=== PATIENT | male | born 1965 | race Caucasian/White ===

== ENCOUNTER 2017-05-03 09:59 | Emergency (ER) | payer MEDICAID ==
[2017-05-03 10:15] VITALS: BP 100/50; PULSE 76; RESP 20; TEMP 98.2; O2SAT 96
[2017-05-03 10:17] VITALS: BMI 31.2
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
== END 2017-05-03 11:15 | disposition home or self-care (01) ==
LOC: H.ER 09:59
DX: S01.511A Laceration without foreign body of lip, initial encounter (principal); Y08.89XA Assault by other specified means, initial encounter; Y93.89 Activity, other specified; Y92.89 Other specified places as the place of occurrence of the external cause

== ENCOUNTER 2017-10-30 09:21 | Emergency (ER) | payer MEDICAID ==
[2017-10-30 09:22] VITALS: BMI 31.2
[2017-10-30 09:42] VITALS: BP 145/84; PULSE 98; RESP 19; O2SAT 96
--- NOTE | 2017-10-30 10:30 | ED PDOC ---
HPI: CCC, URI, Sore Throat Time Seen by Provider: 10/30/17 09:43 Chief Complaint (Nursing): Cough, Cold, Congestion History Per: Patient History/Exam Limitations: no limitations Onset/Duration Of Symptoms: Days (1), Gradual Current Symptoms Are (Timing): Still Present Associated Symptoms: Fever, Chills, Cough, Sputum (yellow), Myalgias, Nasal Congestion. denies: Sore Throat, Neck Pain, Nausea, Vomiting, Diarrhea Ear Symptoms: Bilateral: None Severity: Mild Additional History Per: Patient Additional Complaint(s): c.o cough, congestion since friday. c.o pain to left rib cage with deep inspiration since last night. states he had a fever on friday and again today no travel Past Medical History Reviewed: Historical Data, Nursing Documentation, Vital Signs Vital Signs: Last Vital Signs Temp 100.7 F H 10/30/17 13:25 Pulse 98 H 10/30/17 09:35 Resp 19 10/30/17 09:35 BP 145/84 10/30/17 09:35 Pulse Ox 96 10/30/17 13:24 - Medical History PMH: Anxiety, Asthma, Back Problems, HTN, Pneumonia - Family History Family History: States: Unknown Family Hx - Living Arrangements Living Arrangements: With Family - Social History Current smoker - smoking cessation education provided: No - Immunization History Hx Tetanus Toxoid Vaccination: (2007) - Home Medications Home Medications: Ambulatory Orders Medication Instructions Recorded Azithromycin 250 mg PO DAILY #5 tab 10/30/17 - Allergies Allergies/Adverse Reactions: Allergies Allergy/AdvReac Type Severity Reaction Status Date / Time No Known Allergies Allergy Verified 05/03/17 10:21 Curb-65 Severity Score - CURB-65 Severity Score Confusion: No Bun >19mg/dl (>7mmol/L): No Respiratory Rate greater than/equal to 30: No Systolic BP <90 or Diastolic BP less than/equal 60mmHg: No Age >64: No Curb-65 Score: 0 Percentage 30-day mortality: 0.6% Review of Systems ROS Statement: Except As Marked, All Systems Reviewed And Found Negative Constitutional: Positive for: Fever, Chills Cardiovascular: Positive for: Chest Pain (with cough and deep breath). Negative for: Palpitations Respiratory: Positive for: Cough, Sputum (yellow), Wheezing Gastrointestinal: Negative for: Nausea, Vomiting, Abdominal Pain, Diarrhea Musculoskeletal: Negative for: Neck Pain Skin: Negative for: Rash Neurological: Negative for: Weakness, Numbness, Headache Physical Exam - Reviewed Nursing Documentation Reviewed: Yes Vital Signs Reviewed: Yes - Physical Exam Appears: Positive for: Uncomfortable Head Exam: Positive for: ATRAUMATIC, NORMAL INSPECTION, NORMOCEPHALIC Eye Exam: Positive for: Normal appearance, EOMI, PERRL Neck: Positive for: Normal, Painless ROM, Supple Cardiovascular/Chest: Positive for: Regular Rate, Rhythm, Chest Non Tender. Negative for: Edema, Gallop, Murmur, Bradycardia, Tachycardia Respiratory: Positive for: Rales (rll). Negative for: Decreased Breath Sounds, Accessory Muscle Use, Crackles, Wheezing, Respiratory Distress Pulses-Radial (L): 2+ Pulses-Radial (R): 2+ Gastrointestinal/Abdominal: Positive for: Normal Exam, Bowel Sounds, Soft. Negative for: Tenderness Back: Positive for: Normal Inspection. Negative for: L CVA Tenderness, R CVA Tenderness Extremity: Positive for: Normal ROM. Negative for: Tenderness, Pedal Edema, Calf Tenderness, Deformity, Swelling Neurologic/Psych: Positive for: Alert, sander setter II-XII, Oriented, Mood/Affect (calm) , Gait (steady). Negative for: Motor/Sensory Deficits, Aphasia, Facial Droop - Laboratory Results Result Diagrams: 10/30/17 11:00 10/30/17 11:00 - ECG ECG: Positive for: Interpreted By Me ECG Rhythm: Positive for: Normal QRS, Normal ST Segment, Sinus Rhythm (82). Negative for: ST/T Changes Interpretation Of Abn EKG: no evidence of ischemia O2 Sat by Pulse Oximetry: 96 Pulse Ox Interpretation: Normal - Progress ED Course And Treament: pt now comfortable no signs of sepsis only elevated wbc. given abx will d/c home on zithromax. all of pt's questions were answered and pt agree's with plan. Re-evaluation Time: 13:00 Condition: Improved Medical Decision Making Medical Decision Making: Time: 11:18 Chest X-Ray FINDINGS: LUNGS: Linear atelectasis identified the inferior left lung zone laterally. Remainder of the lungs appears unremarkable bilaterally. PLEURA: No significant pleural effusion identified. No pneumothorax apparent. CARDIOVASCULAR: Normal. OSSEOUS STRUCTURES: No significant abnormalities. VISUALIZED UPPER ABDOMEN: Normal. OTHER FINDINGS: None. IMPRESSION: Linear atelectasis left base. Remainder of the examination appears unremarkable. (-) for influenza a/b Time: 13:04 CT Chest with contrast (Pulmonary Angiogram) FINDINGS: PULMONARY ARTERIES: Examination technically limited. There was a technical error associated with timing of scan relative to contrast administration. Adequate contrast enhancement of the pulmonary arteries is not achieved for this examination. No large central pulmonary embolus is identified. However, segmental and subsegmental pulmonary artery branches are not adequately evaluated. AORTA: No acute findings. No thoracic aortic aneurysm. LUNGS: Left lower lobe consolidation. Pneumonia versus atelectasis. Please note that there are secretions seen within left lower lobe bronchi, of uncertain significance. No pulmonary mass. Minimal dependent atelectasis in right lower lobe. . PLEURAL SPACES: Unremarkable. No effusion or pneuomothorax. HEART: Unremarkable. No cardiomegaly. No significant pericardial effusion. LYMPH NODES: No significant mediastinal or hilar lymphadenopathy. Shotty mediastinal nodes are identified. BONES, CHEST WALL: Unremarkable. No fracture or destructive lesion OTHER FINDINGS: Low-density left upper pole renal mass, 1.5 cm. Likely cortical cysts. However , this measures 23 Hounsfield units. Consider nonemergent ultrasound examination for further evaluation. IMPRESSION: Technically limited examination. Cannot exclude pulmonary embolism on the basis of this examination. Left lower lobe infiltrate versus atelectasis. Note is made of secretions within left lower lobe bronchi. Incidental 1.5 cm left upper pole low-density renal mass, most likely cyst. Consider nonemergent evaluation with ultrasound examination. Disposition - Clinical Impression Clinical Impression: Pneumonia - Patient ED Disposition Is Patient to be Admitted: No Counseled Patient/Family Regarding: Studies Performed, Diagnosis, Need For Followup, Rx Given - Disposition Referrals: [facility] [Outside] (2 to 3 days) Disposition: Routine/Home Disposition Time: 13:00 Condition: GOOD Prescriptions: Azithromycin 250 mg PO DAILY #5 tab Instructions: Pneumonia, Adult (DC) Forms: [employer] (Kiswahili)
[2017-10-30 11:18] LABS: BASO # 0.1 K/uL (0.0-0.2); BASO % 0.7 % (0.0-2.0); EOS % 0.2 % (0.0-4.0); LYMPH # 2.6 K/uL (1.0-4.3); LYMPH % 14.4 % (20.0-40.0); MEAN CELL VOLUME 91.6 fl (80.0-94.0); MEAN CORPUSCULAR HEMOGLOBIN 31.4 pg (27.0-31.0); MEAN CORPUSCULAR HGB CONC 34.3 g/dL (33.0-37.0); MEAN PLATELET VOLUME 7.9 fl (7.2-11.7); MONO # 1.8 K/uL (0.0-0.8); NEUT # 13.4 K/uL (1.8-7.0); NEUT % 74.7 % (50.0-75.0); NRBC % 0.1 % (0.0-0.0); RBC 4.77 Mil/uL (4.40-5.90); RED CELL DISTRIBUTION WIDTH 12.7 % (11.5-14.5); WHITE BLOOD COUNT 17.9 K/uL (4.8-10.8)
--- NOTE | 2017-10-30 11:20 | RAD ---
HISTORY: cough COMPARISON: Chest with left ribs 02/05/2015. TECHNIQUE: Chest PA and lateral FINDINGS: LUNGS: Linear atelectasis identified the inferior left lung zone laterally. Remainder of the lungs appears unremarkable bilaterally. PLEURA: No significant pleural effusion identified. No pneumothorax apparent. CARDIOVASCULAR: Normal. OSSEOUS STRUCTURES: No significant abnormalities. VISUALIZED UPPER ABDOMEN: Normal. OTHER FINDINGS: None. IMPRESSION: Linear atelectasis left base. Remainder of the examination appears unremarkable.
[2017-10-30 11:26] LABS: GFR AFRICAN-AMERICAN > 60; GFR NON-AFRICAN AMERICAN > 60
[2017-10-30 11:47] LABS: ALB/GLOB RATIO 0.8 (1.0-2.1); ALBUMIN 3.8 g/dL (3.5-5.0); ALT/SGPT 46 U/L (21-72); AST/SGOT 53 U/L (17-59); BLOOD UREA NITROGEN 20 mg/dl (9-20)
[2017-10-30] MEDS ORDERED: Iodixanol 320 MG/ML 100 ML BOTTLE IV ONE (11:50)
[2017-10-30] MEDS ORDERED: Sodium Chloride 0.9% 100 ML ONE (11:51)
--- NOTE | 2017-10-30 13:06 | CT ---
PROCEDURE: CT Chest with contrast (Pulmonary Angiogram) HISTORY: cp r/o pe COMPARISON: None available. TECHNIQUE: Axial computed tomography images were obtained of the chest in the pulmonary arterial phase of enhancement. Coronal and sagittal reformatted images were created and reviewed. Intravenous contrast dose: 95 mL Omnipaque 300 Radiation dose: Total exam DLP = 469.73 mGy-cm. This CT exam was performed using one or more of the following dose reduction techniques: Automated exposure control, adjustment of the mA and/or kV according to patient size, and/or use of iterative reconstruction technique. FINDINGS: PULMONARY ARTERIES: Examination technically limited. There was a technical error associated with timing of scan relative to contrast administration. Adequate contrast enhancement of the pulmonary arteries is not achieved for this examination. No large central pulmonary embolus is identified. However, segmental and subsegmental pulmonary artery branches are not adequately evaluated. AORTA: No acute findings. No thoracic aortic aneurysm. LUNGS: Left lower lobe consolidation. Pneumonia versus atelectasis. Please note that there are secretions seen within left lower lobe bronchi, of uncertain significance. No pulmonary mass. Minimal dependent atelectasis in right lower lobe. . PLEURAL SPACES: Unremarkable. No effusion or pneuomothorax. HEART: Unremarkable. No cardiomegaly. No significant pericardial effusion. LYMPH NODES: No significant mediastinal or hilar lymphadenopathy. Shotty mediastinal nodes are identified. BONES, CHEST WALL: Unremarkable. No fracture or destructive lesion OTHER FINDINGS: Low-density left upper pole renal mass, 1.5 cm. Likely cortical cysts. However, this measures 23 Hounsfield units. Consider nonemergent ultrasound examination for further evaluation. IMPRESSION: Technically limited examination. Cannot exclude pulmonary embolism on the basis of this examination. Left lower lobe infiltrate versus atelectasis. Note is made of secretions within left lower lobe bronchi. Incidental 1.5 cm left upper pole low-density renal mass, most likely cyst. Consider nonemergent evaluation with ultrasound examination.
[2017-10-30] MEDS ORDERED: cefTRIAXone (Rocephin) 1 gm Inj ONE (13:21)
[2017-10-30 15:01] VITALS: TEMP 98.4
--- NOTE | 2017-10-31 18:11 | CARD ---
APPROVED REPORT EKG Measurement Heart [id number] <Conclusion> Normal sinus rhythm Possible Left atrial enlargement Borderline ECG
== END 2017-10-30 15:06 | disposition home or self-care (01) ==
LOC: H.ER 09:21
DX: J18.9 Pneumonia, unspecified organism (principal); F41.9 Anxiety disorder, unspecified; I10 Essential (primary) hypertension; J45.909 Unspecified asthma, uncomplicated
CPT/HCPCS: 71046; 71275; 80053; 84484; 85025; 87804; 93005; 96365; 96366; 99282; J0696; Q9967

== ENCOUNTER 2018-01-03 06:22 | Emergency (ER) | payer MEDICAID ==
[2018-01-03 06:22] VITALS: BMI 31.2
[2018-01-03 06:39] VITALS: RESP 18; TEMP 98.5; O2SAT 98
[2018-01-03] MEDS ORDERED: Naproxen 500 MG TAB PO ONE ×2 (07:37→08:01)
--- NOTE | 2018-01-03 08:41 | ED PDOC ---
Lower Extremity Pain/Injury Time Seen by Provider: 01/03/18 07:09 Chief Complaint (Nursing): Hip Pain Chief Complaint (Provider): Hip Pain History Per: Patient History/Exam Limitations: no limitations Onset/Duration Of Symptoms: Days (x2) Current Symptoms Are (Timing): Still Present Additional Complaint(s): 52 year old male, with a past medical history of asthma, presents to the ED complaining of right side hip pain. Patient reports he woke up yesterday with severe pain to his right hip and was unable to go to work. 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 Patient reports he felt the same pain when he woke up this morning, thus prompting today's visit. Denies any history of fall or overexertion. Pain worsens when flexing, extending hip and bears his weight. PMD: None - Hip Currently Unable To: Bear Weight, Straighten, Bend Or Move Past Medical History Reviewed: Historical Data, Nursing Documentation, Vital Signs Vital Signs: Last Vital Signs Temp 98.5 F 01/03/18 06:35 Pulse 83 01/03/18 06:35 Resp 18 01/03/18 06:35 BP 107/75 01/03/18 06:35 Pulse Ox 98 01/03/18 06:35 - Medical History PMH: Anxiety, Asthma, Back Problems, HTN, Pneumonia - Surgical History Surgical History: No Surg Hx - Family History Family History: States: Unknown Family Hx - Living Arrangements Living Arrangements: With Family - Social History Current smoker - smoking cessation education provided: Yes Alcohol: Occasional Drugs: Other (Methadone (100 mg) ) - Immunization History Hx Tetanus Toxoid Vaccination: (2007) - Home Medications Home Medications: Ambulatory Orders Medication Instructions Recorded Azithromycin 250 mg PO DAILY #5 tab 10/30/17 Naproxen [EC-Naprosyn] 500 mg PO Q12H PRN #20 tablet. 01/03/18 - Allergies Allergies/Adverse Reactions: Allergies Allergy/AdvReac Type Severity Reaction Status Date / Time No Known Allergies Allergy Verified 05/03/17 10:21 Review of Systems ROS Statement: Except As Marked, All Systems Reviewed And Found Negative Constitutional: Negative for: Fever, Chills Gastrointestinal: Negative for: Nausea, Vomiting, Abdominal Pain Genitourinary Male: Negative for: Dysuria Musculoskeletal: Positive for: Other (Right hip pain ) Physical Exam - Reviewed Nursing Documentation Reviewed: Yes Vital Signs Reviewed: Yes - Physical Exam Appears: Positive for: Non-toxic, No Acute Distress Head Exam: Positive for: ATRAUMATIC, NORMOCEPHALIC Eye Exam: Positive for: EOMI, Normal appearance, PERRL ENT: Positive for: Normal ENT Inspection Neck: Positive for: Normal, Painless ROM Cardiovascular/Chest: Positive for: Regular Rate, Rhythm. Negative for: Murmur Respiratory: Positive for: Normal Breath Sounds. Negative for: Respiratory Distress Gastrointestinal/Abdominal: Positive for: Normal Exam, Soft. Negative for: Tenderness Back: Positive for: Normal Inspection. Negative for: L CVA Tenderness, R CVA Tenderness Extremity: Positive for: Normal ROM, Other (Pain when flexing right hip and palpation. ). Negative for: Tenderness, Pedal Edema, Calf Tenderness Neurologic/Psych: Positive for: Alert, Oriented. Negative for: Motor/Sensory Deficits - ECG O2 Sat by Pulse Oximetry: 98 (RA) Pulse Ox Interpretation: Normal - Radiology X-Ray: Viewed By Me X-Ray Interpretation: No Acute Disease Medical Decision Making Medical Decision Making: Time: 736 Impression: Right hip pain Rule out bone marrow and osteoarthritis Plan: -- Hip Right [HIP 1 VIEW w/ PELVIS RT] RAD Scribe Attestation: Documented by Marium Feliz, acting as a scribe for Dr. Chapito MD. Provider Scribe Attestation: All medical record entries made by the Scribe were at my direction and personally dictated by me. I have reviewed the chart and agree that the record accurately reflects my personal performance of the history, physical exam, medical decision making, and the department course for this patient. I have also personally directed, reviewed, and agree with the discharge instructions and disposition. Disposition - Clinical Impression Clinical Impression: Hip pain - Patient ED Disposition Is Patient to be Admitted: No Doctor Will See Patient In The: Office Counseled Patient/Family Regarding: Diagnosis, Need For Followup, Rx Given - Disposition Referrals: [facility] [Outside] [facility] [Outside] [facility] [Outside] Disposition: Routine/Home Disposition Time: 09:00 Condition: STABLE Prescriptions: Naproxen [EC-Naprosyn] 500 mg PO Q12H PRN #20 tablet.dr CHUNG Reason: Pain, Mild (1-3) Instructions: Hip Pain Forms: [email or web address] (Mohawk) - POA Present On Arrival: None
[2018-01-03 09:45] VITALS: BP 110/72; PULSE 81
--- NOTE | 2018-01-03 10:29 | RAD ---
PROCEDURE: Right Hip Radiographs. HISTORY: pain x 2 days COMPARISON: None. FINDINGS: BONES: No acute fracture. JOINTS: Normal. SOFT TISSUES: Normal. OTHER FINDINGS: None. IMPRESSION: Demonstrated fracture or dislocation.
== END 2018-01-03 09:44 | disposition home or self-care (01) ==
LOC: H.ER 06:22
DX: M25.551 Pain in right hip (principal); F41.9 Anxiety disorder, unspecified; I10 Essential (primary) hypertension; J45.909 Unspecified asthma, uncomplicated; F17.200 Nicotine dependence, unspecified, uncomplicated

== ENCOUNTER 2018-08-24 10:19 | Emergency (ER) | payer MEDICAID ==
[2018-08-24 10:19] VITALS: BMI 31.2
[2018-08-24 10:25] VITALS: RESP 16; O2SAT 98
--- NOTE | 2018-08-24 11:09 | RAD ---
PROCEDURE: Left Hip X-ray Radiographs. HISTORY: joint pain COMPARISON: None. FINDINGS: BONES: Bone alignment and mineralization are normal. There is no acute displaced fracture or bone destruction. JOINTS: Normal. SOFT TISSUES: Normal. OTHER FINDINGS: None. IMPRESSION: No acute fracture or dislocation.
--- NOTE | 2018-08-24 11:24 | ED PDOC ---
HPI: Back Time Seen by Provider: 08/24/18 10:32 Chief Complaint (Nursing): Hip Pain Chief Complaint (Provider): Back and Hip Pain History Per: Patient History/Exam Limitations: no limitations Onset/Duration Of Symptoms: Days (x 6) Current Symptoms Are (Timing): Still Present Quality Of Discomfort: Sharp, "Pain" Associated Symptoms: None Additional Complaint(s): 53 year old male with a history of Hepatitis C and Asthma presents to the ED with left lower back pain and hip pain for the last 6 days. Pain radiates down t he left lower extremity. It is described as sharp and is exacerbated by movement. He reports that his sister provided him Oxycodone and Morphine tablets that he took without relief (none taken today). He also notes that he tried to self medicate with heroin for pain relief yesterday without success. Denies fever, chills, numbness, weakness, saddle anesthesia, incontinence, urinary symptoms, bowel dysfunction, nausea, vomiting, diarrhea, chest pain, SOB/cough, and abdominal pain. PMD: Dr. Gina Rosario Past Medical History Reviewed: Historical Data, Nursing Documentation, Vital Signs Vital Signs: Last Vital Signs Temp 97.9 F 08/24/18 10:24 Pulse 82 08/24/18 10:24 Resp 16 08/24/18 10:24 BP 128/79 08/24/18 10:24 Pulse Ox 98 08/24/18 10:24 - Medical History PMH: Anxiety, Arthritis, Asthma, Back Problems, Depression, Hepatitis (C), HTN, Hypercholesterolemia, Pneumonia - Surgical History Other surgeries: pilonidal cystectomy - Family History Family History: States: Unknown Family Hx - Social History Current smoker - smoking cessation education provided: Yes SMOKER/PACKS PER DAY:: 1 Drugs: Opiates - Home Medications Home Medications: Ambulatory Orders Medication Instructions Recorded Gabapentin [Neurontin] 600 mg PO TID 06/15/18 RX: Aripiprazole 10 mg PO DAILY 06/15/18 RX: Doxepin [Sinequan] 50 mg PO DAILY 06/15/18 RX: Potassium Citrate [Urocit-K ER 5 meq PO BID 06/15/18 Tab] Rosuvastatin Calcium [Crestor] 10 mg PO DAILY 06/15/18 Acetaminophen [Acetaminophen 8 650 mg PO Q8 PRN #21 tablet.er 08/24/18 Hour] Meloxicam [Mobic] 15 mg PO DAILY PRN #10 tab 08/24/18 - Allergies Allergies/Adverse Reactions: Allergies Allergy/AdvReac Type Severity Reaction Status Date / Time No Known Allergies Allergy Verified 05/03/17 10:21 Review of Systems ROS Statement: Except As Marked, All Systems Reviewed And Found Negative Constitutional: Negative for: Fever, Chills Cardiovascular: Negative for: Chest Pain Gastrointestinal: Negative for: Nausea, Vomiting, Abdominal Pain, Diarrhea Musculoskeletal: Positive for: Back Pain (and hip (left)). Negative for: Other (saddle anesthesia) Neurological: Negative for: Weakness, Numbness Physical Exam - Reviewed Nursing Documentation Reviewed: Yes Vital Signs Reviewed: Yes - Physical Exam Comments: GENERAL APPEARANCE: Patient is awake, alert, oriented x 3, in no acute distress, resting comfortably. SKIN: Warm, dry; (-) cyanosis. ENMT: Mucous membranes moist. NECK: Supple CHEST AND RESPIRATORY: (-) rales, (-) rhonchi, (-) wheezes; breath sounds equal bilaterally. Respirations nonlabored. HEART AND CARDIOVASCULAR: (-) irregularity ABDOMEN AND GI: Soft; (-) tenderness; (-) palpable mass. BACK: (+) left paralumbar and sciatic notch tenderness; (-) direct bony tenderness, (-) deformity. (+) straight leg raise at 10 degrees bilaterally. EXTREMITIES: (-) deformity. Distal pulses good bilaterally. (+) decreased ROM at left hip secondary to pain. Remainder of left lower extremity is non tender with full ROM; sensation intact throughout. (-) calf tenderness (-) erythema (-) edema NEURO AND PSYCH: Ambulatory with steady gait. Intact sensation bilaterally; normal strength in extension of the knees, plantar and dorsiflexion of the toes. Speech: clear. (-) facial asymmetry (-) aphasia. - ECG O2 Sat by Pulse Oximetry: 98 (RA) Pulse Ox Interpretation: Normal Medical Decision Making Medical Decision Makin:45 Impression: acute hip and back pain Initial Plan: --Left hip x-ray --Toradol 15 mg IM 1130 Hip XR reviewed, radiology report follows PROCEDURE: Left Hip X-ray Radiographs. HISTORY: joint pain COMPARISON: None. FINDINGS: BONES: Bone alignment and mineralization are normal. There is no acute displaced fracture or bone destruction. JOINTS: Normal. SOFT TISSUES: Normal. OTHER FINDINGS: None. IMPRESSION: No acute fracture or dislocation. 1210 On re-evaluation, patient reports improvement of symptoms. On exam, patient remains AAOx3, in no acute distress. Vitals stable. Lab/Diagnostic results d/w the patient in great detail. Diagnosis of acute hip and back pain, probable sciatica d/w the patient. Based on history, exam and diagnostic results, plan will be for outpatient follow up with PMD/ortho. Patient instructed to follow-up with pmd / referral provided / the clinic in 1- 2 days without fail. Advised to take medication as prescribed. Return to the emergency room at any time for any new or worsening symptoms. Patient states he fully agrees with and understands discharge instructions. States that he agrees with the plan and disposition. Verbalized and repeated discharge instructions and plan. I have given the patient opportunity to ask any additional questions. Scribe Attestation: Documented by Keisha Kennedy acting as a scribe for Elizabeth Hernandez PA-C Provider Scribe Attestation: All medical record entries made by the Scribe were at my direction and personally dictated by me. I have reviewed the chart and agree that the record accurately reflects my personal performance of the history, physical exam, medical decision making, and the department course for this patient. I have also personally directed, reviewed, and agree with the discharge instructions and disposition. Disposition - Clinical Impression Clinical Impression: Hip pain, Low back pain, Sciatica of left side - Patient ED Disposition Is Patient to be Admitted: No Counseled Patient/Family Regarding: Studies Performed, Diagnosis, Need For Followup, Rx Given - Disposition Referrals: Usman Calderon MD [Medical Doctor] - Gina Rosario MD [Staff Provider] - Disposition: Routine/Home Disposition Time: 12:10 Condition: STABLE Additional Instructions: The emergency medical care you received today was directed at your acute symptoms. If you were prescribed any medication, please fill it and take as directed. It may take several days for your symptoms to resolve. Return to the Emergency Department if your symptoms worsen, do not improve, or if you have any other problems. Please contact your doctor in 2 days for re-evaluation and follow up / or call one of the physicians/clinics you have been referred to that are listed on the Patient Visit Information form that is included in your discharge packet. Bring any paperwork you were given at discharge with you along with any medications you are taking to your follow up visit. Our treatment cannot replace ongoing medical care by a primary care provider (PCP) outside of the emergency department. Prescriptions: Acetaminophen [Acetaminophen 8 Hour] 650 mg PO Q8 PRN #21 tablet.er PRN Reason: Pain, Moderate (4-7) Meloxicam [Mobic] 15 mg PO DAILY PRN #10 tab PRN Reason: Pain, Moderate (4-7) Instructions: Sciatica, Low Back Pain in Adults, Hip Pain Forms: [facility] (American) Print Language: SYRIAC - POA Present On Arrival: None
[2018-08-24 15:17] VITALS: BP 134/82; PULSE 88; TEMP 98.1
== END 2018-08-24 12:42 | disposition home or self-care (01) ==
LOC: H.ER 10:19
DX: M54.5 Low back pain (principal); M25.559 Pain in unspecified hip; M54.42 Lumbago with sciatica, left side; F17.210 Nicotine dependence, cigarettes, uncomplicated; I10 Essential (primary) hypertension; Z86.59 Personal history of other mental and behavioral disorders; J45.909 Unspecified asthma, uncomplicated
CPT/HCPCS: 73503; 96372; 99283; J1885

== ENCOUNTER 2018-09-11 16:49 | Emergency (ER) | payer MEDICAID ==
[2018-09-11 16:49] VITALS: BMI 31.2
[2018-09-11 17:13] VITALS: RESP 18
[2018-09-11] MEDS ORDERED: Bacitracin 500 Units/gm Oint Foilpak UD ONE (18:36)
--- NOTE | 2018-09-11 18:55 | ED PDOC ---
Lower Extremity Pain/Injury Time Seen by Provider: 09/11/18 17:41 Chief Complaint (Nursing): Lower Extremity Problem/Injury Chief Complaint (Provider): Lower Extremity Problem/Injury History Per: Patient History/Exam Limitations: no limitations Onset/Duration Of Symptoms: Days (1x week) Current Symptoms Are (Timing): Still Present Severity: Moderate Additional Complaint(s): 53 year old male with a past medical history of hepatitis C presents to the ED for an evaluation of a left leg wound he sustained 1x week ago. 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 Patient reports using antibiotic ointment and changing the dressing on his leg, however his mom stated that it looked infected, and suggested he come to the ED for further evaluation. Patient reports taking aleve and ibuprofen once or twice with no relief, and denies taking further medications. Patient denies having drainage of puss, fevers, chills, and night sweats. Tetanus is up to date. Of note: Patient reports having mild chronic leg swelling, no different than usual. PMD: Gina Rosario MD. Past Medical History Reviewed: Historical Data, Nursing Documentation, Vital Signs Vital Signs: Last Vital Signs Temp 98.3 F 09/11/18 17:13 Pulse 88 09/11/18 17:13 Resp 18 09/11/18 17:13 BP 121/79 09/11/18 17:13 Pulse Ox 97 09/11/18 17:13 ÁNGEL Report Viewed: Yes - Medical History PMH: Anxiety, Arthritis, Asthma, Back Problems, Depression, Hepatitis (C), HTN, Hypercholesterolemia, Pneumonia Denies: Chronic Kidney Disease - Family History Family History: States: No Known Family Hx - Social History Current smoker - smoking cessation education provided: Yes Alcohol: Occasional Drugs: Opiates (heroin) - Immunization History Hx Tetanus Toxoid Vaccination: Yes (2007) Hx Influenza Vaccination: No Hx Pneumococcal Vaccination: No - Home Medications Home Medications: Ambulatory Orders Medication Instructions Recorded Aripiprazole 10 mg PO DAILY 06/15/18 Doxepin [Sinequan] 50 mg PO DAILY 06/15/18 Gabapentin [Neurontin] 600 mg PO TID 06/15/18 Potassium Citrate [Urocit-K ER Tab] 5 meq PO BID 06/15/18 Rosuvastatin Calcium [Crestor] 10 mg PO DAILY 06/15/18 Acetaminophen [Acetaminophen 8 650 mg PO Q8 PRN #21 tablet.er 08/24/18 Hour] Meloxicam [Mobic] 15 mg PO DAILY PRN #10 tab 08/24/18 Cephalexin [cephalexin] 500 mg PO QID 7 Days cap 09/11/18 Ibuprofen [Motrin Tab] 800 mg PO Q6 PRN 7 Days tab 09/11/18 - Allergies Allergies/Adverse Reactions: Allergies Allergy/AdvReac Type Severity Reaction Status Date / Time No Known Allergies Allergy Verified 05/03/17 10:21 Review of Systems ROS Statement: Except As Marked, All Systems Reviewed And Found Negative Constitutional: Negative for: Fever, Chills, Sweats Musculoskeletal: Positive for: Leg Pain (wound on left almazan. (-) drainage of puss), Other (chronic bilateral leg swelling (no different than usual).) Physical Exam - Reviewed Nursing Documentation Reviewed: Yes Vital Signs Reviewed: Yes - Physical Exam Appears: Positive for: Non-toxic, Uncomfortable Head Exam: Positive for: ATRAUMATIC, NORMOCEPHALIC Pulses-Dorsalis Pedis (L): 2+ Extremity: Positive for: Swelling (1+ edema to bilateral lower extremities.), Other (left anterior leg: aproximately 4.5 cm scar with erythema on anterior almazan. Mildly increased warmth to touch. (-) puss drainage noted, (-) fluctuance, (-) induration.) Neurologic/Psych: Positive for: Alert, Oriented (3x) - ECG O2 Sat by Pulse Oximetry: 97 (RA) Pulse Ox Interpretation: Normal Medical Decision Making Medical Decision Makin:41 Initial impression: 53 year old male with a left lower extremity wound. Initial plan: * bacitracin * dressing change Return instructions provided. Patient advised to keep wound open to air as frequently as possible. Patient will be discharged home with an Rx for PO antibiotics. Scribe Attestation: Documented Kulwant Santiago, acting as a scribe for Jessica Reese PA-C. Provider Scribe Attestation: All medical record entries made by the Scribe were at my direction and personally dictated by me. I have reviewed the chart and agree that the record accurately reflects my personal performance of the history, physical exam, medical decision making, and the department course for this patient. I have also personally directed, reviewed, and agree with the discharge instructions and disposition. Disposition - Clinical Impression Clinical Impression: Cellulitis - Disposition Referrals: Gina Rosario MD [Staff Provider] - Disposition Time: 18:49 Condition: STABLE Additional Instructions: Return to ER if you develop worsening redness, fevers or pus drainage. Complete full course of antibiotics prescribed. Take Ibuprofen for pain. Continue to use Bacitracin and cover when at work and leave open to the air as often as necessary. Prescriptions: Cephalexin [cephalexin] 500 mg PO QID 7 Days cap Ibuprofen [Motrin Tab] 800 mg PO Q6 PRN 7 Days tab PRN Reason: Pain, Moderate (4-7) Instructions: Cellulitis and Erysipelas (Skin Infections) Forms: [facility] (Haitian), [facility] ED School/Work Excuse Print Language: CHINESE
[2018-09-11 19:12] VITALS: BP 130/76; PULSE 76; TEMP 98; O2SAT 100
== END 2018-09-11 19:11 | disposition short-term general hospital (02) ==
LOC: H.ER 16:49
DX: L03.116 Cellulitis of left lower limb (principal); I10 Essential (primary) hypertension; J45.909 Unspecified asthma, uncomplicated; Z86.59 Personal history of other mental and behavioral disorders